=== PATIENT | female | born 2000 | race Caucasian/White ===

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

== ENCOUNTER → 2020-09-07 | Outpatient (CLI) | payer BC, MEDICAID | END | disposition home or self-care (01) | LOC: LABWHC1 13:55 | PROVIDERS: ATTEND Emergency Medicine | DX: Z20.828 Contact with and (suspected) exposure to other viral communicable diseases (principal) | CPT/HCPCS: U0003; C9803 ==

== ENCOUNTER 2022-05-09 01:56 | Inpatient (IN) | payer BC, OTHER ==
[2022-05-09] MEDS ORDERED: SODIUM CHLORIDE 0.9% 500 ML 500 ML IV STA (02:18)
--- NOTE | 2022-05-09 02:31 | ED ---
Overdose HPI - General Chief Complaint: Overdose Stated Complaint: Overdose Time Seen by Provider: 05/09/22 02:31 Source: patient, RN notes reviewed, old records reviewed Mode of arrival: ambulatory Limitations: no limitations - History of Present Illness MD Complaint: intentional overdose -: unknown Intent: unwilling to say, want to escape How Overdose Was Discovered: family/friend present at time Context: Intentional Overdose: drug/ETOH problems Context: Accidental Overdose: wanted to get high Associated Symptoms: depression Treatments Prior to Arrival: none - Related Data Home Medications Medication Instructions Recorded Confirmed Medroxyprogesterone Acetate 150 mg IM Q90D 05/03/17 05/03/17 [Depo-Provera] Allergies Allergy/AdvReac Type Severity Reaction Status Date / Time No Known Allergies Allergy Verified 05/09/22 02:17 Review of Systems ROS Statement: Those systems with pertinent positive or pertinent negative responses have been documented in the HPI. ROS Other: All systems not noted in ROS Statement are negative. 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 Absent: scleral icterus, conjunctival injection, periorbital swelling ENT exam: Present: normal exam, mucous membranes moist Neck exam: Present: normal inspection. Absent: tenderness, meningismus, lymphadenopathy Respiratory exam: Present: normal lung sounds bilaterally. Absent: respiratory distress, wheezes, rales, rhonchi, stridor Cardiovascular Exam: Present: normal rhythm, tachycardia, normal heart sounds. Absent: systolic murmur, diastolic murmur, rubs, gallop, clicks GI/Abdominal exam: Present: soft, normal bowel sounds. Absent: distended, tenderness, guarding, rebound, rigid Extremities exam: Present: normal inspection, full ROM, normal capillary refill. Absent: tenderness, pedal edema, joint swelling, calf tenderness Back exam: Present: normal inspection Neurological exam: Present: alert, oriented X3, CN II-XII intact Psychiatric exam: Present: normal affect, normal mood Skin exam: Present: warm, dry, intact, normal color. Absent: rash Course Vital Signs 05/09/22 05/09/22 05/09/22 02:13 03:12 04:47 Temperature 97.8 F Pulse Rate 121 H 101 H 76 Respiratory 19 18 18 Rate Blood Pressure 113/81 100/70 102/64 O2 Sat by Pulse 98 98 100 Oximetry - Reevaluation(s) Reevaluation #1: 05/09/22 05:59 medical record is reviewed Medical Decision Making - Lab Data Result diagrams: 05/09/22 03:12 05/09/22 03:12 Lab Results 05/09/22 05/09/22 05/09/22 Range/Units 03:12 03:12 04:05 WBC 5.4 (3.8-10.6) k/uL RBC 4.70 (3.80-5.40) m/uL Hgb 14.9 (11.4-16.0) gm/dL Hct 44.1 (34.0-46.0) % MCV 93.9 (80.0-100.0) fL MCH 31.7 (25.0-35.0) pg MCHC 33.7 (31.0-37.0) g/dL RDW 12.2 (11.5-15.5) % Plt Count 219 (150-450) k/uL MPV 7.1 Neutrophils % 50 % Lymphocytes % 42 % Monocytes % 5 % Eosinophils % 1 % Basophils % 0 % Neutrophils # 2.7 (1.3-7.7) k/uL Lymphocytes # 2.3 (1.0-4.8) k/uL Monocytes # 0.3 (0-1.0) k/uL Eosinophils # 0.0 (0-0.7) k/uL Basophils # 0.0 (0-0.2) k/uL Sodium 143 (137-145) mmol/L Potassium 3.4 L (3.5-5.1) mmol/L Chloride 107 (98-107) mmol/L Carbon Dioxide 23 (22-30) mmol/L Anion Gap 13 mmol/L BUN 6 L (7-17) mg/dL Creatinine 0.57 (0.52-1.04) mg/dL Est GFR (CKD-EPI)AfAm >90 (>60 ml/min/1.73 sqM) Est GFR (CKD-EPI)NonAf >90 (>60 ml/min/1.73 sqM) Glucose 78 (74-99) mg/dL Calcium 8.8 (8.4-10.2) mg/dL Total Bilirubin 0.2 (0.2-1.3) mg/dL AST 26 (14-36) U/L ALT 14 (4-34) U/L Alkaline Phosphatase 73 (38-126) U/L Total Protein 7.6 (6.3-8.2) g/dL Albumin 4.7 (3.5-5.0) g/dL Urine Color Urine Appearance (Clear) Urine pH (5.0-8.0) Ur Specific [place] (1.001-1.035) Urine Protein (Negative) Urine Glucose (UA) (Negative) Urine Ketones (Negative) Urine Blood (Negative) Urine Nitrite (Negative) Urine Bilirubin (Negative) Urine Urobilinogen (<2.0) mg/dL Ur Leukocyte Esterase (Negative) Urine RBC (0-5) /hpf Urine WBC (0-5) /hpf Ur Squamous Epith Cells (0-4) /hpf Urine Bacteria (None) /hpf Urine Mucus (None) /hpf Urine HCG, Qual Not Detected (Not Detectd) Salicylates <1.0 mg/dL Urine Opiates Screen (NotDetected) Ur Oxycodone Screen (NotDetected) Urine Methadone Screen (NotDetected) Ur Propoxyphene Screen (NotDetected) Acetaminophen <10.0 ug/mL Ur Barbiturates Screen (NotDetected) U Tricyclic Antidepress (NotDetected) Ur Phencyclidine Scrn (NotDetected) Ur Amphetamines Screen (NotDetected) U Methamphetamines Scrn (NotDetected) U Benzodiazepines Scrn (NotDetected) Urine Cocaine Screen (NotDetected) U Marijuana (THC) Screen (NotDetected) Serum Alcohol 142 mg/dL 05/09/22 05/09/22 Range/Units 04:05 04:05 WBC (3.8-10.6) k/uL RBC (3.80-5.40) m/uL Hgb (11.4-16.0) gm/dL Hct (34.0-46.0) % MCV (80.0-100.0) fL MCH (25.0-35.0) pg MCHC (31.0-37.0) g/dL RDW (11.5-15.5) % Plt Count (150-450) k/uL MPV Neutrophils % % Lymphocytes % % Monocytes % % Eosinophils % % Basophils % % Neutrophils # (1.3-7.7) k/uL Lymphocytes # (1.0-4.8) k/uL Monocytes # (0-1.0) k/uL Eosinophils # (0-0.7) k/uL Basophils # (0-0.2) k/uL Sodium (137-145) mmol/L Potassium (3.5-5.1) mmol/L Chloride (98-107) mmol/L Carbon Dioxide (22-30) mmol/L Anion Gap mmol/L BUN (7-17) mg/dL Creatinine (0.52-1.04) mg/dL Est GFR (CKD-EPI)AfAm (>60 ml/min/1.73 sqM) Est GFR (CKD-EPI)NonAf (>60 ml/min/1.73 sqM) Glucose (74-99) mg/dL Calcium (8.4-10.2) mg/dL Total Bilirubin (0.2-1.3) mg/dL AST (14-36) U/L ALT (4-34) U/L Alkaline Phosphatase (38-126) U/L Total Protein (6.3-8.2) g/dL Albumin (3.5-5.0) g/dL Urine Color Light Yellow Urine Appearance Cloudy H (Clear) Urine pH 6.0 (5.0-8.0) Ur Specific [place] 1.010 (1.001-1.035) Urine Protein Negative (Negative) Urine Glucose (UA) Negative (Negative) Urine Ketones Trace H (Negative) Urine Blood Negative (Negative) Urine Nitrite Negative (Negative) Urine Bilirubin Negative (Negative) Urine Urobilinogen <2.0 (<2.0) mg/dL Ur Leukocyte Esterase Negative (Negative) Urine RBC <1 (0-5) /hpf Urine WBC <1 (0-5) /hpf Ur Squamous Epith Cells 1 (0-4) /hpf Urine Bacteria Moderate H (None) /hpf Urine Mucus Few H (None) /hpf Urine HCG, Qual (Not Detectd) Salicylates mg/dL Urine Opiates Screen Not Detected (NotDetected) Ur Oxycodone Screen Not Detected (NotDetected) Urine Methadone Screen Not Detected (NotDetected) Ur Propoxyphene Screen Not Detected (NotDetected) Acetaminophen ug/mL Ur Barbiturates Screen Not Detected (NotDetected) U Tricyclic Antidepress Not Detected (NotDetected) Ur Phencyclidine Scrn Not Detected (NotDetected) Ur Amphetamines Screen Not Detected (NotDetected) U Methamphetamines Scrn Not Detected (NotDetected) U Benzodiazepines Scrn Detected H (NotDetected) Urine Cocaine Screen Detected H (NotDetected) U Marijuana (THC) Screen Not Detected (NotDetected) Serum Alcohol mg/dL - EKG Data -: EKG Interpreted by Me (EKG shows sinus tachycardia 108 ND 124 QRS 90 QTC 404) Disposition Referrals: Lei Tong DO [Primary Care Provider] - 1-2 days
[2022-05-09 03:24] LABS: Basophils % (A) 0 %; Eosinophils % (A) 1 %; HCT 44.1 % (34.0-46.0); HGB 14.9 gm/dL (11.4-16.0); Lymphocytes # (A) 2.3 k/uL (1.0-4.8); Lymphocytes % (A) 42 %; MCH 31.7 pg (25.0-35.0); MCHC 33.7 g/dL (31.0-37.0); MCV 93.9 fL (80.0-100.0); Mean Platelet Volume 7.1; Monocytes # (A) 0.3 k/uL (0-1.0); Monocytes % (A) 5 %; Neutrophils # (A) 2.7 k/uL (1.3-7.7); Neutrophils % (A) 50 %; Platelet Count 219 k/uL (150-450); RDW 12.2 % (11.5-15.5); WBC 5.4 k/uL (3.8-10.6)
[2022-05-09 03:35] LABS: ALT 14 U/L (4-34); AST 26 U/L (14-36); Acetaminophen <10.0 ug/mL; African American GFR (CKD) >90 (>60 ml/min/1.73 sqM); Albumin 4.7 g/dL (3.5-5.0); Alkaline Phosphatase 73 U/L (38-126); Anion Gap 13 mmol/L; Blood Urea Nitrogen 6 mg/dL (7-17); Calcium 8.8 mg/dL (8.4-10.2); Carbon Dioxide 23 mmol/L (22-30); Chloride 107 mmol/L (98-107); Glucose 78 mg/dL (74-99); Non-African American GFR(CKD) >90 (>60 ml/min/1.73 sqM); Potassium 3.4 mmol/L (3.5-5.1); Salicylate <1.0 mg/dL; Sodium 143 mmol/L (137-145); Total Bilirubin 0.2 mg/dL (0.2-1.3); Total Protein 7.6 g/dL (6.3-8.2)
[2022-05-09 04:18] LABS: Alcohol 142 mg/dL
[2022-05-09 04:21] LABS: Appearance,Urine Cloudy (Clear); Bacteria,Urine Moderate /hpf; Bilirubin,Urine Negative (Negative); Blood,Urine Negative (Negative); Color,Urine Light Yellow; Glucose,Urine (UA) Negative (Negative); Ketones,Urine Trace (Negative); Leukocyte Esterase,Urine Negative (Negative); Mucus,Urine Few /hpf; Nitrite,Urine Negative (Negative); Protein,Urine Negative (Negative); RBC,Urine <1 /hpf (0-5); Squamous Epithelial Cell,Urine 1 /hpf (0-4); Urobilinogen,Urine <2.0 mg/dL (<2.0); WBC,Urine <1 /hpf (0-5)
[2022-05-09 04:32] LABS: Amphetamine Screen,Urine Not Detected (NotDetected); Benzodiazepines Screen,Urine Detected (NotDetected); Cocaine Screen,Urine Detected (NotDetected); Opiate Screen,Urine Not Detected (NotDetected); Phencyclidine Screen,Urine Not Detected (NotDetected); Urn Cannabinoid Scrn Not Detected (NotDetected)
[2022-05-09 04:33] LABS: Barbiturate Screen,Urine Not Detected (NotDetected); Methadone Screen, Urine Not Detected (NotDetected); Oxycodone Screen, Urine Not Detected (NotDetected); Tricyclic Antidepressant,Urine Not Detected (NotDetected)
[2022-05-09] MEDS ORDERED: MAG HYDROX/AL HYDROX/SIMETH 30 ML CUP PO PRN (13:47)
[2022-05-09] MEDS ORDERED: ACETAMINOPHEN TAB 325 MG TAB PO PRN (13:47)
[2022-05-09] MEDS ORDERED: HALOPERIDOL LACTATE 5 MG/ML 1 ML VIAL IM PRN (13:47)
[2022-05-09] MEDS ORDERED: MAGNESIUM HYDROXIDE 2,400 MG/10 ML CUP PO PRN (13:47)
[2022-05-09] MEDS ORDERED: LORazepam 1 MG TAB PO PRN (13:47)
[2022-05-09] MEDS ORDERED: haloperidoL 5 MG TAB PO PRN (13:50)
[2022-05-09] MEDS ORDERED: LORazepam 2 MG/ML INJ IM PRN (13:50)
[2022-05-09 15:48] VITALS: RESP 16
[2022-05-10 06:41] VITALS: TEMP 97.8
[2022-05-10] MEDS ORDERED: VENLAFAXINE HCL ER 75 MG CAP PO STA (10:30)
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
[2022-05-10 12:25] LABS: ALT 13 U/L (4-34); AST 25 U/L (14-36); Albumin 4.8 g/dL (3.5-5.0); Alkaline Phosphatase 64 U/L (38-126); Bilirubin,Unconjugated 0.8 mg/dL (0.0-1.1); Total Bilirubin 0.8 mg/dL (0.2-1.3); Total Protein 7.7 g/dL (6.3-8.2)
[2022-05-10 18:40] LABS: Chol/HDL Ratio 2.03 Ratio; LDL Cholesterol,Calculated 73.8 mg/dL (0.0-131.0)
--- NOTE | 2022-05-10 23:25 | P.CONS ---
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 Medical consult was requested for medical management. Patient was seen with the bedside nurse, she was lying in bed comfortable. She denies any symptoms. She denies headache or dizziness or weakness or numbness. No chest pain or dyspnea. No coughing. No diarrhea or vomiting. No abdominal pain. No menstrual problem. No urinary complaints. No weakness or numbness. Preoperative test for her but she declined. Risks and benefits are explained for her. I asked her about smoking and she declined also she declined illicit tracts but she admits to occasional drinking of alcohol. She is hemodynamically stable Labs reviewed showing unremarkable CBC Potassium 3.4, so BMP and liver enzymes are unremarkable. TSH 0.41 Urine analysis is not suspicious of infection. Urine drug screen is positive for cocaine and benzodiazepine Coronavirus not detected. Serum alcohol is elevated at 142 Which is elevated Review of Systems Review of systems CONSTITUTIONAL: No fever, no malaise, no fatigue. HEENT: No recent visual problems or hearing problems. Denied any sore throat. CARDIOVASCULAR: No orthopnea, PND, no palpitations, no syncope. PULMONARY: No shortness of breath, no cough, no hemoptysis. GASTROINTESTINAL: No diarrhea, no nausea, no vomiting, no abdominal pain. Normoactive bowel sounds. NEUROLOGICAL: No headaches, no weakness, no numbness. HEMATOLOGICAL: Denies any bleeding or petechiae. GENITOURINARY: Denies any burning micturition, frequency, or urgency. MUSCULOSKELETAL/RHEUMATOLOGICAL: Denies any joint pain, swelling, or any muscle pain. ENDOCRINE: Denies any polyuria or polydipsia. 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 - Past Family History Father History Unknown: Yes Medications and Allergies Home Medications Medication Instructions Recorded Confirmed Type ALPRAZolam [Xanax] 0.5 mg PO DAILY PRN 05/09/22 05/09/22 History Escitalopram [Lexapro] 20 mg PO DAILY 05/09/22 05/09/22 History Allergies Allergy/AdvReac Type Severity Reaction Status Date / Time No Known Allergies Allergy Verified 05/09/22 15:52 Physical Exam Vitals: Vital Signs Temp Pulse Resp BP Pulse Ox 05/10/22 06:41 97.8 F 58 L 16 112/65 98 GENERAL: The patient is alert and oriented x3, not in any acute distress. Well developed, well nourished. HEENT: Pupils are round and equally reacting to light. EOMI. No scleral icterus. No conjunctival pallor. Normocephalic, atraumatic. No pharyngeal erythema. No thyromegaly. CARDIOVASCULAR: S1 and S2 present. No murmurs, rubs, or gallops. PULMONARY: Chest is clear to auscultation, no wheezing or crackles. ABDOMEN: Soft, nontender, nondistended, normoactive bowel sounds. No palpable organomegaly. MUSCULOSKELETAL: No joint swelling or deformity. EXTREMITIES: No cyanosis, clubbing, or pedal edema. NEUROLOGICAL: Gross neurological examination did not reveal any focal deficits. SKIN: No rashes. no petechiae. Results CBC & Chem 7: 05/09/22 03:12 05/09/22 03:12 Labs: Abnormal Lab Results - Last 24 Hours (Table) 05/10/22 Range/Units 11:38 TSH 0.419 L (0.465-4.680) mIU/L Assessment and Plan Assessment: -major depressive disorder, management as per sec primary team -Alcohol use disorder: Patient consult to quit -Substance abuse disorder with cocaine, patient to be encouraged to quit all the substances. Patient is mobile on Chet for DVT We recommend patient follow up with PCP in one week after discharge and patient was instructed with the same Thank you for consulting us
[2022-05-11 06:36] VITALS: BP 113/66; PULSE 72
[2022-05-11] MEDS ORDERED: VENLAFAXINE HCL ER 150 MG CAP PO SCH (09:00)
--- NOTE | 2022-05-11 14:54 | P.DS ---
Providers Date of admission: 05/09/22 13:43 Expected date of discharge: 05/11/22 Attending physician: Lei Farrell MD Consults: 05/09/22 13:47 Consult Physician Routine Consulting Provider: Markos Mills Consult Reason/Comments: Medical H&P Do you want consulting provider notified?: Already Contacted Primary care physician: Lei Tong - Discharge Diagnosis(es) (1) Major depressive disorder, recurrent severe without psychotic features Status: Acute Priority: High (2) Engages in binge consumption of alcohol Status: Chronic Priority: Medium Hospital Course: Admission HPI: Patient is a single, unemployed, 21-year-old female with significant history of depression and anxiety who presented to the hospital after an intentional overdose on Lexapro and Xanax in the context of alcohol into xication. Patient presented to the hospital on 05/09/2022, brought into the emergency department by her sister last night after an overdose on Xanax and Lexapro. Upon presentation the emergency department, the patient initially denied any suicidal ideation however reported multiple life stressors. She was subsequently admitted to the psychiatric unit and signed herself voluntarily in. Upon evaluation on the psychiatric unit, the patient reports that she isn't feeling increasingly depressed over the past 3 months. She reports numerous life stressors including recently moving back home from [place], [place] after living with her partner for the past 2 years. Furthermore, the patient is adjusting with her new living situation as well as her current unemployment. The patient does report some financial stressors. In regards to depressive symptoms, the patient does report anhedonia, decreased motivation, feelings of isolation, decreased appetite, hopelessness, and suicidal ideation. The patient reports that she has constantly had chronic suicidal ideation for quite some time however this overdose attempt was the first time she has attempted suicide. The patient reports that she was drinking and speaking with her ex-partner over the phone. She reports that this led her to overdosing on the Xanax and Lexapro. In regards other mood symptoms, the patient does not provide any significant history of bipolar disorder. She reports no increased goal-directed activity, excessive energy, or grandiosity. She denies any significant history of auditory or visual hallucinations. She reports no history of paranoia or other delusions. Patient states that she has been previously diagnosed with depression and anxiety. The patient has only been on Lexapro and Xanax in the past which she is prescribed through her primary care physician. Patient denies any previous psychiatric hospitalizations. She reports that she was previously attending counseling 3 years ago but is currently not open with any outpatient services. Aside from this overdose attempt, the patient denies any prior attempts at suicide. Hospital course: Upon admission to the unit patient was initially presenting as depressed and suicidal. Patient was however directable and agreeable to commence treatment. The patient was started on a regimen of Effexor for management of depression/anxiety. Furthermore, the patient does have significant history of alcohol use disorder and was counseled at length on her substance use. The patient spoke of her stressors and engaged in therapy both group and individual. Patient was also seen by the medical team for history and physical examination. Over the course of the hospital physician, the patient despite significant improvement in regards her target symptoms of depression, anxiety, and suicidal ideation. She developed better insight and judgment became more future and goal oriented. She reported wanting to live for herself and for her family. [facility], the patient is not reporting any suicidal or homicidal ideation, intention, and/or plan. She is denying any access to firearms or other weapons. She reports no auditory or visual hallucinations. She denies any paranoia or other delusions. The patient has been adherent with medications and is not reporting any significant side effects at this time. Furthermore, the patient was counseled at length the importance for medication adherence and appropriate outpatient follow-up. The patient does have a significant history of substance abuse and was counseled regarding length on abstaining from all substances including alcohol and marijuana. The patient also has been chronically prescribed Xanax and was counseled on the danger of this. Prior to discharge, family meeting will be arranged by criminal justice social worker to answer questions and ensure safety peer Mental status exam: General Appearance: Patient appears to be stated age is alert, pleasant, and cooperative. Patient is in no acute distress and has fair hygiene and grooming Behavior: Patient is calmly seated without any agitated behavior. Speech: Patient's speech is fluent and nonpressured. Mood/Affect: Patient reports their mood is "much better", affect is congruent and euthymic. Suicidality/Homicidality: Patient denies having any suicidal or homicidal ideation intent or plan. Perceptions: Patient denies any auditory or visual hallucinations. Though content/process: There is no evidence of any delusional thought content and thought process is linear and goal-directed. Patient is future oriented. Memory and concentration: AOX3, grossly intact for the purposes of this session. Can spell "WORLD" backwards correctly. Judgment and insight: Improved with guarded prognosis Vital Signs Temp 97.8 F 05/11/22 06:36 Pulse 72 05/11/22 06:36 Resp 16 05/11/22 06:36 BP 113/66 05/11/22 06:36 Pulse Ox 99 05/11/22 06:36 FiO2 Laboratory Results WBC 5.4 k/uL (3.8-10.6) 05/09/22 03:12 RBC 4.70 m/uL (3.80-5.40) 05/09/22 03:12 Hgb 14.9 gm/dL (11.4-16.0) 05/09/22 03:12 Hct 44.1 % (34.0-46.0) 05/09/22 03:12 MCV 93.9 fL (80.0-100.0) 05/09/22 03:12 MCH 31.7 pg (25.0-35.0) 05/09/22 03:12 MCHC 33.7 g/dL (31.0-37.0) 05/09/22 03:12 RDW 12.2 % (11.5-15.5) 05/09/22 03:12 Plt Count 219 k/uL (150-450) 05/09/22 03:12 MPV 7.1 05/09/22 03:12 Neutrophils % 50 % 05/09/22 03:12 Lymphocytes % 42 % 05/09/22 03:12 Monocytes % 5 % 05/09/22 03:12 Eosinophils % 1 % 05/09/22 03:12 Basophils % 0 % 05/09/22 03:12 Neutrophils # 2.7 k/uL (1.3-7.7) 05/09/22 03:12 Lymphocytes # 2.3 k/uL (1.0-4.8) 05/09/22 03:12 Monocytes # 0.3 k/uL (0-1.0) 05/09/22 03:12 Eosinophils # 0.0 k/uL (0-0.7) 05/09/22 03:12 Basophils # 0.0 k/uL (0-0.2) 05/09/22 03:12 Sodium 143 mmol/L (137-145) 05/09/22 03:12 Potassium 3.4 mmol/L (3.5-5.1) L 05/09/22 03:12 Chloride 107 mmol/L (98-107) 05/09/22 03:12 Carbon Dioxide 23 mmol/L (22-30) 05/09/22 03:12 Anion Gap 13 mmol/L 05/09/22 03:12 BUN 6 mg/dL (7-17) L 05/09/22 03:12 Creatinine 0.57 mg/dL (0.52-1.04) 05/09/22 03:12 Est GFR (CKD-EPI)AfAm >90 (>60 ml/min/1.73 sqM) 05/09/22 03:12 Est GFR (CKD-EPI)NonAf >90 (>60 ml/min/1.73 sqM) 05/09/22 03:12 Glucose 78 mg/dL (74-99) 05/09/22 03:[address] Glu mg/dL 90 05/10/22 11:38 Hemoglobin A1c 4.8 % (0.0-6.0) 05/10/22 11:38 Calcium 8.8 mg/dL (8.4-10.2) 05/09/22 03:12 Total Bilirubin 0.8 mg/dL (0.2-1.3) 05/10/22 11:38 Conjugated Bilirubin 0.0 mg/dL (0.0-0.3) 05/10/22 11:38 Unconjugated Bilirubin 0.8 mg/dL (0.0-1.1) 05/10/22 11:38 Delta Bilirubin 0.0 mg/dL (0.0-0.2) 05/10/22 11:38 AST 25 U/L (14-36) 05/10/22 11:38 ALT 13 U/L (4-34) 05/10/22 11:38 Alkaline Phosphatase 64 U/L (38-126) 05/10/22 11:38 Total Protein 7.7 g/dL (6.3-8.2) 05/10/22 11:38 Albumin 4.8 g/dL (3.5-5.0) 05/10/22 11:38 Triglycerides 95.50 mg/dL (0.00-149.00) 05/10/22 11:38 Cholesterol 183.00 mg/dL (0.00-200.00) 05/10/22 11:38 LDL Cholesterol, Calc 73.8 mg/dL (0.0-131.0) 05/10/22 11:38 VLDL Cholesterol, Calc 19.10 mg/dL (5.00-40.00) 05/10/22 11:38 HDL Cholesterol 90.10 mg/dL (40.00-60.00) H 05/10/22 11:38 Cholesterol/HDL Ratio 2.03 Ratio 05/10/22 11:38 TSH 0.419 mIU/L (0.465-4.680) L 05/10/22 11:38 Urine Color Light Yellow 05/09/22 04:05 Urine Appearance Cloudy (Clear) H 05/09/22 04:05 Urine pH 6.0 (5.0-8.0) 05/09/22 04:05 Ur Specific [place] 1.010 (1.001-1.035) 05/09/22 04:05 Urine Protein Negative (Negative) 05/09/22 04:05 Urine Glucose (UA) Negative (Negative) 05/09/22 04:05 Urine Ketones Trace (Negative) H 05/09/22 04:05 Urine Blood Negative (Negative) 05/09/22 04:05 Urine Nitrite Negative (Negative) 05/09/22 04:05 Urine Bilirubin Negative (Negative) 05/09/22 04:05 Urine Urobilinogen <2.0 mg/dL (<2.0) 05/09/22 04:05 Ur Leukocyte Esterase Negative (Negative) 05/09/22 04:05 Urine RBC <1 /hpf (0-5) 05/09/22 04:05 Urine WBC <1 /hpf (0-5) 05/09/22 04:05 Ur Squamous Epith Cells 1 /hpf (0-4) 05/09/22 04:05 Urine Bacteria Moderate /hpf (None) H 05/09/22 04:05 Urine Mucus Few /hpf (None) H 05/09/22 04:05 Urine HCG, Qual Not Detected (Not Detectd) 05/09/22 04:05 Salicylates <1.0 mg/dL 05/09/22 03:12 Urine Opiates Screen Not Detected (NotDetected) 05/09/22 04:05 Ur Oxycodone Screen Not Detected (NotDetected) 05/09/22 04:05 Urine Methadone Screen Not Detected (NotDetected) 05/09/22 04:05 Ur Propoxyphene Screen Not Detected (NotDetected) 05/09/22 04:05 Acetaminophen <10.0 ug/mL 05/09/22 03:12 Ur Barbiturates Screen Not Detected (NotDetected) 05/09/22 04:05 U Tricyclic Antidepress Not Detected (NotDetected) 05/09/22 04:05 Ur Phencyclidine Scrn Not Detected (NotDetected) 05/09/22 04:05 Ur Amphetamines Screen Not Detected (NotDetected) 05/09/22 04:05 U Methamphetamines Scrn Not Detected (NotDetected) 05/09/22 04:05 U Benzodiazepines Scrn Detected (NotDetected) H 05/09/22 04:05 Urine Cocaine Screen Detected (NotDetected) H 05/09/22 04:05 U Marijuana (THC) Screen Not Detected (NotDetected) 05/09/22 04:05 Serum Alcohol 142 mg/dL 05/09/22 03:12 Coronavirus (PCR) Not Detected (Not Detectd) 05/09/22 12:01 Allergies Allergy/AdvReac Type Severity Reaction Status Date / Time No Known Allergies Allergy Verified 05/09/22 15:52 Impression: Major depressive disorder, recurrent, severe Alcohol use disorder, binge drinking type Plan: -Continue with discharge today as patient has improved and stabilized psychiatri cuong and is not currently an imminent threat to self and/or others. Patient will remain at chronically elevated risk for harm to self and/or others due to her previous attempt at suicide and substance abuse. -Continue medications: Effexor XR 150 mg by mouth daily for depression/anxiety -Patient was counseled on the need for medication compliance and appropriate follow-up at mental health and also primary care for medical issues. Patient verbalized understanding and agreed. -Social work to arrange for and conduct family meeting to ensure safety upon discharge and answer any questions/concerns. Social work also to arrange for patients follow up appointments with [facility]] for psychiatric care along with follow up with primary care provider. -Patient counseled on abstaining from recreational drugs and marijuana and alcohol. Was informed/educated on the adverse effects on their physical and mental health. Patient verbally agreed and understood. Patient was offered substance abuse treatment however declined at this time. -Patient was instructed to return to the hospital or seek immediate medical care if their psychiatric or medical symptoms do worsen or reoccur. -Psychoeducation and supportive therapy provided to patient. Risks and benefits of pharmacological treatment versus the risks and benefits of nontreatment weight and discussed. Informed consent discussion held. Common side effects of psychotropics discussed such as, but not limited to headache, GI disturbance, sexual dysfunction, movement disorders, sedation, and orthostatic hypotension. Life threatening and blackbox warnings of prescribed medications also discussed. Potential risks of operating a vehicle or heavy machinery discussed with patient at length. Advised on importance of compliance and a reliable and r esponsible manner. Patient advised to review FDA consumer labeling of all medications prior to taking. Patient verbalized understanding of potential risks, and agrees with current treatment plan. Patient advised to medically contact physician/emergency personnel if any acute changes in condition occur. Patient Condition at Discharge: Stable Plan - Discharge Summary Discharge Rx Participant: No New Discharge Prescriptions: New Venlafaxine HCl ER [Effexor XR] 150 mg PO DAILY 30 Days cap Discontinued Escitalopram [Lexapro] 20 mg PO DAILY ALPRAZolam [Xanax] 0.5 mg PO DAILY PRN PRN Reason: Anxiety Discharge Medication List Venlafaxine HCl ER [Effexor XR] 150 mg PO DAILY 30 Days cap 05/11/22 [Rx] Follow up Appointment(s)/Referral(s): [facility] [Outside] - 05/17/22 9:00 am (with Intake Department) Lei Tong DO [Primary Care Provider] - 1-2 days Patient Instructions/Handouts: Mood Disorders (ED), Depression (DC) Discharge Disposition: HOME SELF-CARE
== END 2022-05-11 10:45 | disposition home or self-care (01) | DRG 885 ==
LOC: EC 01:56 → 3MHU 13:43
PROVIDERS: ADMIT Psychiatry & Neurology Psychiatry; ATTEND Psychiatry & Neurology Psychiatry
DX: F33.2 Major depressive disorder, recurrent severe without psychotic features (principal); F10.129 Alcohol abuse with intoxication, unspecified; F14.90 Cocaine use, unspecified, uncomplicated; F41.9 Anxiety disorder, unspecified; T42.4X1A Poisoning by benzodiazepines, accidental (unintentional), initial encounter; Y90.6 Blood alcohol level of 120-199 mg/100 ml; Z79.899 Other long term (current) drug therapy; Z20.822 Contact with and (suspected) exposure to COVID-19
CPT/HCPCS: 36415; 80053; 80061; 80076; 80143; 80179; 80306; 80320; 81001; 81025; 82075; 83036; 84443; 85025; 87635; 99285

== ENCOUNTER 2023-04-09 09:21 | Emergency (ER) | payer BC, OTHER ==
[2023-04-09 09:28] VITALS: RESP 16
--- NOTE | 2023-04-09 09:52 | ED ---
General Adult HPI - General Chief complaint: Needlestick/Exposure Stated complaint: Lt hand needle poke Time Seen by Provider: 04/09/23 09:31 Source: patient, RN notes reviewed, old records reviewed Mode of arrival: ambulatory Limitations: no limitations - History of Present Illness Initial comments: Patient states was cleaning a client's house yesterday and was stuck in left middle fingertip by an EpiPen needle that was on the floor around 9pm. Unknown when her client used the needlle. States minimal bleeding from the puncture. Did wash it right away and used alcohol. She states that her client has history of diabetes but no known other medical history. Patient denies any medical history. States that her immunizations including hepatitis B are up-to-date. -: hour(s) (12) Location: left (index finger) Severity scale (1-10): 0 Consistency: now resolved - Related Data Previous Rx's Medication Instructions Recorded Venlafaxine HCl ER [Effexor XR] 150 mg PO DAILY 30 Days cap 05/11/22 Allergies Allergy/AdvReac Type Severity Reaction Status Date / Time No Known Allergies Allergy Verified 04/09/23 09:26 Review of Systems ROS Statement: Those systems with pertinent positive or pertinent negative responses have been documented in the HPI. ROS Other: All systems not noted in ROS Statement are negative. 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 Absent: tenderness, meningismus Respiratory exam: Absent: respiratory distress, accessory muscle use Cardiovascular Exam: Present: regular rate Left Hand Wrist exam: Present: full ROM. Absent: tenderness, swelling, abrasion, laceration, ecchymosis, erythema Vascular: Present: normal capillary refill. Absent: vascular compromise Neurological exam: Present: alert, oriented X3, normal gait Psychiatric exam: Present: normal affect, normal mood Skin exam: Present: warm, dry, normal color. Absent: cyanosis, diaphoretic, petechiae, pallor Course Vital Signs 04/09/23 09:26 Temperature 98.5 F Pulse Rate 84 Respiratory 16 Rate Blood Pressure 126/88 O2 Sat by Pulse 95 Oximetry Medical Decision Making - Medical Decision Making Was pt. sent in by a medical professional or institution (, NICKIE, [employer], urgent care, hospital, or senior care...) When possible be specific @ -No Did you speak to anyone other than the patient for history (EMS, parent, family, police, friend...)? What history was obtained from this source @ -No Did you review nursing and triage notes (agree or disagree)? Why? @ -I reviewed and agree with nursing and triage notes Were old charts reviewed (outside hosp., previous admission, EMS record, old EKG, old radiological studies, urgent care reports/EKG's, senior care records)? Report findings @ -No old charts were reviewed Differential Diagnosis (chest pain, altered mental status, abdominal pain women, abdominal pain men, vaginal bleeding, weakness, fever, dyspnea, syncope, headache, dizziness, GI bleed, back pain, seizure, CVA, palpatations, mental health, musculoskeletal)? @ -Needlestick injury, cellulitis, foreign body EKG interpreted by me (3pts min.). @ -n/a X-rays interpreted by me (1pt min.). @ -None done CT interpreted by me (1pt min.). @ -None done U/S interpreted by me (1pt. min.). @ -None done What testing was considered but not performed or refused? (CT, X-rays, U/S, labs)? Why? @ -baseline HIV and labs offered patient refused What meds were considered but not given or refused? Why? @ -None Did you discuss the management of the patient with other professionals (professionals i.e. NICKIE Leyva, [employer]IST, lab, RT, psych nurse, psychotherapist social worker, electronic specialist, teacher, state patrol officer, case finisher)? Give summary @ -No Was smoking cessation discussed for >3mins.? @ -No Was critical care preformed (if so, how long)? @ -No Were there social determinants of health that impacted care today? How? (Homelessness, low income, unemployed, alcoholism, drug addiction, transportation, low edu. Level, literacy, decrease access to med. care, senior care, rehab)? @ -No Was there de-escalation of care discussed even if they declined (Discuss DNR or withdrawal of care, Hospice)? DNR status @ -No What co-morbidities impacted this encounter? (DM, HTN, Smoking, COPD, CAD, Cancer, CVA, ARF, Chemo, Hep., AIDS, mental health diagnosis, sleep apnea, morbid obesity)? @ -None Was patient admitted / discharged? Hospital course, mention meds given and route, prescriptions, significant lab abnormalities, going to OR and other pertinent info. @ -Discharged. Patient sustained a low risk needle stick injury from a client's EpiPen to left middle finger last night at 9 PM. EpiPen was from her client while cleaning his house. States minimal bleeding at the time. Her client has a history of IDDM and denied to her any other medical history. Patient states that her immunizations including hepatitis B are up-to-date. She was offered HIV and baseline lab testing and declined. Directed to follow up with her primary care doctor. Also encouraged her to speak with her client regarding following up with the patient for infectious disease testing. She is agreeable to this plan of care. Case discussed with Dr. Jeffries Undiagnosed new problem with uncertain prognosis? @ -No Drug Therapy requiring intensive monitoring for toxicity (Heparin, Nitro, Insulin, Cardizem)? @ -No Were any procedures done? @ -No Diagnosis/symptom? @ -Needlestick injury Acute, or Chronic, or Acute on Chronic? @ -Acute Uncomplicated (without systemic symptoms) or Complicated (systemic symptoms)? @ -Uncomplicated Side effects of treatment? @ -No Exacerbation, Progression, or Severe Exacerbation? @ -No Poses a threat to life or bodily function? How? (Chest pain, [place], [place], pneumonia, PE, COPD, DKA, ARF, appy, cholecystitis, CVA, Diverticulitis, Homicidal, Suicidal, threat to staff... and all critical care pts) @ -No Disposition Clinical Impression: Needlestick injury of finger Disposition: HOME SELF-CARE Condition: Good Instructions (If sedation given, give patient instructions): Puncture Wound (ED) Additional Instructions: Please discuss with your employer and your client testing for infectious diseases. You were offered HIV and baseline testing here in the emergency room and declined. Please follow-up with your primary care doctor this week. Return with any new or concerning symptoms. Is patient prescribed a controlled substance at d/c from ED?: No Referrals: Lei Tong DO [Primary Care Provider] - 1-2 days Time of Disposition: 09:52
[2023-04-09 10:11] VITALS: BP 124/76; PULSE 79; TEMP 98.1
== END 2023-04-09 10:10 | disposition home or self-care (01) ==
LOC: EC 09:21
DX: S61.231A Puncture wound without foreign body of left index finger without damage to nail, initial encounter (principal); W46.0XXA Contact with hypodermic needle, initial encounter
CPT/HCPCS: 36415; 83036; 99282